=== PATIENT | female | born 1955 | race Caucasian/White ===

== ENCOUNTER 2017-08-19 20:15 | Emergency (ER) | payer BC ==
[2015-10-26 07:40] VITALS: BMI 22.6
[~2017-08-19 20:15] MED LIST: ATIVAN0.5 MG PO; BAYER CHEWABLE81 MG PO; CO Q-10100 MG PO; CYMBALTA20 MG PO; NAC600 MG PO; PREDNISONE20 MG; PROPRANOLOL HCL20 MG PO; ZOCOR40 MG PO
[2017-08-19 21:03] LABS: BASOPHILS 0.2 % (0-2); EOSINOPHILS 1.1 % (0-7); HEMATOCRIT 39.6 % (36.0-48.0); HEMOGLOBIN 13.4 g/dL (12-16); IMMATURE GRANULOCYTES 0.2 % (0-5); LYMPHOCYTES 30.3 % (15-50); MCH 30.7 pg (26.0-34.0); MCHC 33.8 g/dL (31.0-37.0); MCV 90.6 fL (80.0-100.0); MEAN PLATELET VOLUME 9.4 fL (7.4-10.4); MONOCYTES 10.4 % (2-11); NEUTROPHILS 57.8 % (40-80); PLATELET COUNT 221 10x3/uL (130-400); RBC 4.37 10x6/uL (4.00-5.40); WBC 5.4 10x3/uL (4.8-10.8)
[2017-08-19 21:13] LABS: ALBUMIN 3.8 g/dL (3.4-5.0); ALKALINE PHOSPHATASE 84 U/L (46-116); ALT (SGPT) 19 U/L (10-68); BILIRUBIN - TOTAL 0.44 mg/dL (0.2-1.3); CALC OSMOLALITY 276 mosm/kg (275-300); CALCIUM 8.9 mg/dL (8.5-10.1); CARBON DIOXIDE 24.4 mmol/L (21.0-32.0); CHLORIDE - SERUM 102 mmol/L (98-107); CREATINE KINASE 41 UL (21-215); CREATININE - SERUM 0.8 mg/dL (0.6-1.3); GLUCOSE 95 mg/dL (74-106); MAGNESIUM - SERUM 2.2 mg/dL (1.8-2.4); POTASSIUM - SERUM 3.6 mmol/L (3.5-5.1); PROTEIN - SERUM 7.5 g/dL (6.4-8.2); SODIUM 138 mmol/L (136-145); UREA NITROGEN 14 mg/dL (7-18); eGFR NON AFRICAN AMERICAN 77 mL/min (90-120)
[2017-08-19 22:16] LABS: APPEARANCE CLEAR (CLEAR); BILIRUBIN NEGATIVE (NEGATIVE); COLOR YELLOW (YELLOW); GLUCOSE NEGATIVE (NEGATIVE); KETONE NEGATIVE (NEGATIVE); NITRITE NEGATIVE (NEGATIVE); PROTEIN NEGATIVE (NEGATIVE); SPECIFIC GRAVITY 1.015 (1.005-1.020); UROBILINOGEN NORMAL (NORMAL)
== END 2017-08-19 22:27 | disposition home or self-care (01) ==
LOC: D.ER 20:15
PROVIDERS: Family Medicine
DX: I10 Essential (primary) hypertension (principal); F41.9 Anxiety disorder, unspecified; F17.200 Nicotine dependence, unspecified, uncomplicated

== ENCOUNTER → 2018-03-18 06:56 | Outpatient (CLI) | payer BC ==
[2015-10-26 07:40] VITALS: BMI 22.6
== END | disposition home or self-care (01) ==
LOC: D.US 06:56
DX: R10.13 Epigastric pain (principal)

== ENCOUNTER → 2018-03-29 09:57 | Outpatient (CLI) | payer BC ==
[2015-10-26 07:40] VITALS: BMI 22.6
== END | disposition home or self-care (01) ==
LOC: D.CT 09:57
DX: R91.1 Solitary pulmonary nodule (principal)

== ENCOUNTER → 2019-05-22 09:29 | Outpatient (CLI) | payer BC ==
[2015-10-26 07:40] VITALS: BMI 22.6
--- NOTE | 2019-05-27 14:28 | EC ---
PATIENT:JOHN LLOYD DATE OF SERVICE: 05/22/19 SEX: F MEDICAL RECORD: [id number] DATE OF : [birth year] LOCATION:D[facility] AGE OF PATIENT: 63 ADMISSION DATE: 05/22/19 REFERRING PHYSICIAN: INTERPRETING PHYSICIAN: CAROL GRAMAOJ MD ECHOCARDIOGRAM REPORT ECHO CHARGES 4 ECHO COMPLETE Date: 05/22/19 CLINICAL DIAGNOSIS: CAD/ASSESS EF AND VALVES ECHOCARDIOGRAPHIC MEASUREMENTS (adult normal given) AC root (d.<3.7cm) 2.6 cm LV Septum d (<1.2 cm> 1.1 cm Valve Excursion 1.5 cm LV Septum (systole) 1.4 cm Left Atria (s.<4.0cm> 2.8 cm LVPW d(<1.2cm) 1.2 cm RV (d.<2.3cm) 3.0 cm LVPW (sytole) 1.5 cm LV diastole(<5.6CM) 3.5 cm MV E-F(>70mm/sec) cm LV systole 2.3 cm LVOT Diameter 1.7 cm MV exc.(>10mm) 1.3 cm Est.ejection fraction (50-75%) % DOPPLER: LVIT cm/sec A 51.0 cm/sec E 72.0 cm/sec LA cm/sec RVSP 15 mmHg LVOT 67 cm/sec AOP1/2T m/s Asc. Ao 90 cm/sec RVOT 86 cm/sec RA cm/sec PA 108 cm/sec AV Gradient Peak 3.22 mmHg AV Mean 1.55 mmHg AV Area 2.0 cm MV Gradient Peak 3.10 mmHg MV Mean 1.10 mmHg MV Area cm COMMENTS: Property Management Coordinator: Tanesha MCLEOD Environmental Projects Advisor: 3 Dr. Ordoñez TAPE# PACS Pericardial Effusion N DATE OF SERVICE: 05/22/2019 Adequate 2D, color flow imaging, spectral Doppler, and M-Mode No LVH. LV internal dimensions are normal. Wall motion is normal. EF is greater than or equal to 55%. Aortic valve is tricuspid. No evidence of stenosis by Doppler interrogation. Left atrium is normal at 3.8 cm. Mitral valve shows no prolapse. Trace MR. Right-sided chambers are grossly normal. Trace TR. ECHOCARDIOGRAM REPORT [id number] JOHN LLOYD TRANSINT:[id number] Voice Confirmation ID: [id number] DOCUMENT ID: [id number] CAROL GRAMAJO MD at 1428 CC: [id number] DICTATION DATE: 05/22/19 1452 [employer] CHIEF INSPECTOR: 05/22/19 1606 DEP CLI 05/22/19 [place] [id number] [place] [id number]
== END | disposition home or self-care (01) ==
LOC: D.HCCARDIO 09:29
PROVIDERS: ATTEND Internal Medicine Interventional Cardiology
DX: I25.10 Atherosclerotic heart disease of native coronary artery without angina pectoris (principal)

== ENCOUNTER → 2020-06-04 09:31 | Outpatient (CLI) | payer MEDICARE, BC ==
[2015-10-26 07:40] VITALS: BMI 22.6
--- NOTE | ~2020-06-04 | EC ---
PATIENT:JOHN LLOYD DATE OF SERVICE: 06/04/20 SEX: F MEDICAL RECORD: [id number] DATE OF : [birth year] LOCATION:[facility] AGE OF PATIENT: 64 ADMISSION DATE: 06/04/20 REFERRING PHYSICIAN: INTERPRETING PHYSICIAN: CAROL GRAMAJO MD ECHOCARDIOGRAM REPORT ECHO CHARGES 4 ECHO COMPLETE Date: 06/04/20 CLINICAL DIAGNOSIS: CAD/ASSESS EF AND VALVES ECHOCARDIOGRAPHIC MEASUREMENTS (adult normal given) AC root (d.<3.7cm) 3.1 cm LV Septum d (<1.2 cm> 1.4 cm Valve Excursion 1.2 cm LV Septum (systole) 1.5 cm Left Atria (s.<4.0cm> 2.9 cm LVPW d(<1.2cm) 1.3 cm RV (d.<2.3cm) 2.6 cm LVPW (sytole) 1.5 cm LV diastole(<5.6CM) 3.3 cm MV E-F(>70mm/sec) cm LV systole 1.8 cm LVOT Diameter 1.5 cm MV exc.(>10mm) 0.90 cm Est.ejection fraction (50-75%) % DOPPLER: LVIT cm/sec A 59.0 cm/sec E 68.0 cm/sec LA cm/sec RVSP 13 mmHg LVOT 77 cm/sec AOP1/2T m/s Asc. Ao 93 cm/sec RVOT 83 cm/sec RA cm/sec PA 110 cm/sec AV Gradient Peak 3.43 mmHg AV Mean 1.82 mmHg AV Area 1.7 cm MV Gradient Peak 1.96 mmHg MV Mean 1.02 mmHg MV Area cm COMMENTS: Sports Medicine Physician: 2 UNIQUE MCLEOD Vice President Underwriting: 3 Dr. Ordoñez TAPE# PACS Pericardial Effusion N DATE OF SERVICE: Adequate 2D, color-flow imaging, spectral Doppler, and M-Mode LVH is present. LV internal dimensions are normal. Wall motion is normal. EF is greater than or equal to 55%. Aortic valve is sclerotic. No evidence of stenosis by Doppler interrogation. Left atrium is normal at 2.9 cm. Mitral valve shows no prolapse. Trace MR. Right-sided chambers are grossly normal. Trace TR. ECHOCARDIOGRAM REPORT [id number] JOHN LLOYD TRANSINT:[id number] Voice Confirmation ID: [id number] DOCUMENT ID: [id number] CAROL GRAMAJO MD CC: [id number] DICTATION DATE: 06/05/20 1111 CHANNEL SPECIALIST: 06/05/20 160[facility]read [facility] CLI 06/04/20 [place] [id number] [place] [id number]
== END | disposition home or self-care (01) ==
LOC: D.HCCECHO 09:31
PROVIDERS: ATTEND Internal Medicine Interventional Cardiology
DX: I25.10 Atherosclerotic heart disease of native coronary artery without angina pectoris (principal)

== ENCOUNTER → 2020-07-09 08:24 | Outpatient (CLI) | payer MEDICARE, BC ==
[2015-10-26 07:40] VITALS: BMI 22.6
== END | disposition home or self-care (01) ==
LOC: D.HCCARDIO 08:24
PROVIDERS: ATTEND Internal Medicine Cardiovascular Disease
DX: I25.10 Atherosclerotic heart disease of native coronary artery without angina pectoris (principal)